=== PATIENT | female | born 1950 | race African-American/Black ===

== ENCOUNTER 2017-03-31 11:48 | Outpatient (CLI) | payer MEDICARE ==
--- NOTE | 2017-03-31 14:43 | RAD ---
THREE VIEWS OF THE LEFT KNEE 03/31/2017 HISTORY: Bilateral knee pain. Osteoarthritis. FINDINGS: There is no fracture or dislocation involving the left knee. No joint space narrowing is appreciate d. A superior patellar enthesophyte is identified. There is a small sclerotic density seen in the distal left femoral metaphysis, which likely represents a small bone island. IMPRESSION: No acute osseous abnormality involving the left knee. POS: [facility]
--- NOTE | 2017-03-31 14:53 | RAD ---
THREE VIEWS OF THE RIGHT KNEE 03/31/2017 HISTORY: Osteoarthritis. Bilateral knee pain. FINDINGS: There is no evidence of a fracture, dislocation, or other osseous abnormality involving the right kn ee. IMPRESSION: No acute osseous abnormality seen. POS: [facility]
--- NOTE | 2017-03-31 14:53 | RAD ---
AP VIEW OF THE BILATERAL KNEES WITH WEIGHT BEARING 03/31/2017 HISTORY: Bilateral knee pain. Osteoarthritis. FINDINGS: There is no joint space narrowing appreciated. There is no obvious fracture or dislocation seen on this single frontal projection. No other osseous abnormality is seen on the frontal projection. IMPRESSION: No acute osseous abnormality involving the bilateral knees. POS: [facility]
== END 2017-03-31 11:49 | disposition home or self-care (01) ==
LOC: NAV LAB 11:48 → NAV RAD 11:49
PROVIDERS: ATTEND Family Medicine
DX: M19.90 Unspecified osteoarthritis, unspecified site (principal); E78.5 Hyperlipidemia, unspecified; I10 Essential (primary) hypertension
CPT/HCPCS: 73565

== ENCOUNTER 2017-04-01 09:10 | Outpatient (CLI) | payer MEDICARE ==
[2017-04-01 09:43] LABS: ALT (SGPT) 11 U/L (8-55); AST (SGOT) 14 U/L (5-34); Albumin 3.9 g/dL (3.4-4.8); Alkaline Phosphatase 72 U/L (40-150); Anion Gap 14 mmol/L (10-20); BUN (Urea Nitrogen) 17 mg/dL (9.8-20.1); Bilirubin, Total 0.4 mg/dL (0.2-1.2); Calc. Creatinine Clearance 0 mL/min (70-130); Carbon Dioxide 23 mmol/L (23-31); Cardiac Risk 3.5 (Less than 4.5); Chloride 106 mmol/L (98-107); Cholesterol 142 mg/dl (< 200 Desired); Estimated GFR-MDRD 64; Globulin 3.1 g/dL (2.4-3.5); Glucose 98 mg/dL (80-115); HDL Cholesterol 41 mg/dL (>60 Neg Risk); LDL Cholesterol, Calculated 89 mg/dL; Potassium 3.1 mmol/L (3.5-5.1); Sodium 140 mmol/L (136-145); Triglycerides 58 mg/dL (Less than 150)
== END 2017-04-01 09:11 | disposition home or self-care (01) ==
LOC: NAV LAB 09:10
PROVIDERS: ATTEND Family Medicine
DX: E78.5 Hyperlipidemia, unspecified (principal); I10 Essential (primary) hypertension
CPT/HCPCS: 36415; 80053; 80061

== ENCOUNTER 2024-10-23 15:14 | Outpatient (CLI) | payer MEDICARE | END 2024-10-23 15:15 | disposition home or self-care (01) | LOC: NAV RAD 15:14 | PROVIDERS: ATTEND Student in an Organized Health Care Education/Training Program | DX: M25.551 Pain in right hip (principal) | CPT/HCPCS: 72170 ==